=== PATIENT | male | born 1990 | race African-American/Black ===

== ENCOUNTER 2016-10-21 08:59 | Outpatient (CLI) | payer OTHER ==
--- NOTE | 2016-10-21 14:50 | MRI Report ---
EXAM: LEFT ANKLE/HINDFOOT MRI WITHOUT CONTRAST EXAM DATE: 10/21/2016 09:57 AM. CLINICAL HISTORY: Sprain of unspecified ligament of left ankle. COMPARISON: None. TECHNIQUE: Multiplanar, multisequence T1-weighted and fluid-sensitive sequences of the ankle/hindfoot without contrast. Other: None. FINDINGS: Bones and Articular Surfaces: Ankle mortise intact. No osteochondral lesions. Trace amount of marrow edema within the medial malleolus and along the medial margin of the talus. Marrow signal otherwise a ppears normal. Musculotendinous structures: The Achilles tendon and plantar fascia appear intact. Small volume of fl uid associated with the tibialis posterior. Anterior, posterior, and posterolateral ankle tendons oth erwise appear intact without evidence of significant tendinosis. No muscle edema, atrophy or fatty re placement within the [id number]. Ligaments: The anterior talofibular ligament is thickened, attenuated and ill-defined with increased T2 signal consistent with ligament sprain. The posterior talofibular ligament appears intact. The kelli caneal attachment of the calcaneofibular ligament appears intact. The fibular attachment is very ill- defined with increased T2 signal suspicious for partial tear and/or sprain. There is abnormal thicken ing, increased T2 signal and heterogenous signal involving deep and superficial fibers of the deltoid ligament. Normal signal within the tarsal sinus. Miscellaneous: Nonspecific subcutaneous soft tissue edema most pronounced over the lateral aspect of the ankle extending over the dorsum of the foot. IMPRESSION: 1. Severe sprains involving the anterior talofibular, deep and superficial deltoid and calcaneofibula r ligaments. 2. Small amount of reactive marrow edema or contusion within the medial malleolus and medial margin o f the talus. [facility] MUSCULOSKELETAL RADIOLOGY SECTION Referring Provider Line: [phone] SITE ID: [id number]
== END 2016-10-21 09:00 | disposition home or self-care (01) ==
LOC: DI 08:59
PROVIDERS: ATTEND Orthopaedic Surgery
DX: M25.572 Pain in left ankle and joints of left foot (principal); S93.492A Sprain of other ligament of left ankle, initial encounter; S93.412A Sprain of calcaneofibular ligament of left ankle, initial encounter; S93.422A Sprain of deltoid ligament of left ankle, initial encounter

== ENCOUNTER 2017-02-24 09:44 | Outpatient (CLI) | payer OTHER ==
--- NOTE | 2017-02-25 13:55 | MRI Report ---
EXAM: MRI LUMBAR SPINE WITHOUT CONTRAST EXAM DATE: 02/24/2017 10:35 AM. CLINICAL HISTORY: Low back pain. COMPARISON: None. TECHNIQUE: Multiplanar, multisequence T1-weighted and fluid-sensitive sequences of the lumbar spine f rom T12 to S1 without contrast. Other: None. FINDINGS: Spinal Cord: The conus terminates at L1. The conus medullaris and cauda equina are unremarkable. Alignment: No scoliosis or spondylolisthesis. Bone Marrow: Five [id number] lumbar vertebral bodies are assumed. No gross fractures or bone les ions. No bone marrow edema. Disk Levels/Facets: T12-L1: Unremarkable. L1-L2: Unremarkable. L2-L3: Unremarkable. L3-L4: Unremarkable. L4-L5: Normal-appearing disk. Prominent facets and ligamentum flavum. No central stenosis, no foramin al stenosis. L5-S1: Broad-based disk bulge, annular tear. Small focal central protrusion. No central or foraminal stenosis. On the left side, a small synovial cyst arises from the posterolateral aspect of the facet. Musculature: Normal. No edema or fatty atrophy. Other: The partially visualized retroperitoneum is unremarkable. IMPRESSION: 1. Conus terminates at L1, which is normal. 2. L4-L5 shows a normal disk and prominent facets. No central or foraminal stenosis. 3. L5-S1 shows a broad-based disk bulge, a central annular tear, and a small focal central protrusion . No central or foraminal stenosis. Small synovial cyst arises from the posterolateral left facet, no mass effect on the exiting nerve roots. Comment: The following findings are so common in adults without low back pain that while we report th eir presence, they must be interpreted with caution and in the context of the clinical situation. (Re manoj Koch et al, Spine 2001) Prevalence of findings in patients without low back pain: Disk degeneration (any evidence): 92% Disk desiccation/T2 signal loss: 83% Disk height loss: 56% Disk bulge: 64% Disk protrusion: 32% Annular tear/high intensity zone: 38% [facility] Referring Provider Line: [phone] SITE ID: [id number]
== END 2017-02-24 09:45 | disposition home or self-care (01) ==
LOC: DI 09:44
PROVIDERS: ATTEND General Practice
DX: M51.27 Other intervertebral disc displacement, lumbosacral region (principal); M51.37 Other intervertebral disc degeneration, lumbosacral region
CPT/HCPCS: 72148